=== PATIENT | male | born 1980 | race American Indian/Alaskan Native ===

== ENCOUNTER 2019-05-13 08:45 | Emergency (ER) | payer OTHER ==
[2019-05-13 08:57] VITALS: BP 218/139
--- NOTE | 2019-05-13 09:33 | Emergency Department Report ---
ED Lower Extremity HPI - General Chief Complaint: Extremity Injury, Lower Stated Complaint: W/C L FOOT PAIN Time Seen by Provider: 05/13/19 09:20 Source: patient Mode of arrival: Ambulatory Limitations: No Limitations - History of Present Illness MD Complaint: ankle injury, foot injury -: Last night Injury: Ankle: Left, Foot: Left Type of Injury: blunt Place: work Severity: moderate Worsens With: weight bearing Associated Symptoms: able to partially bear weight - Related Data Allergies Allergy/AdvReac Type Severity Reaction Status Date / Time No Known Allergies Allergy Unverified 05/13/19 08:50 ED Review of Systems ROS: Stated complaint: W/C L FOOT PAIN Other details as noted in HPI Comment: All other systems reviewed and negative Constitutional: denies: chills, fever Respiratory: denies: cough, orthopnea, shortness of breath, SOB with exertion Cardiovascular: denies: chest pain, palpitations Gastrointestinal: denies: abdominal pain, nausea, vomiting, diarrhea, constipation, hematemesis, melena, hematochezia Neurological: denies: headache, weakness ED Past Medical Hx - Past Medical History Previous Medical History?: No - Surgical History Past Surgical History?: No - Social History Smoking Status: Current Every Day Smoker Substance Use Type: None ED Physical Exam - General Limitations: No Limitations General appearance: alert, in no apparent distress - Head Head exam: Present: atraumatic, normocephalic, normal inspection - Eye Eye exam: Present: normal appearance, PERRL - Neck Neck exam: Present: normal inspection, full ROM. Absent: tenderness, meningismus, lymphadenopathy, thyromegaly - Respiratory Respiratory exam: Present: normal lung sounds bilaterally - Cardiovascular Cardiovascular Exam: Present: regular rate, normal rhythm, normal heart sounds - GI/Abdominal GI/Abdominal exam: Present: soft. Absent: tenderness - Expanded Lower Extremity Exam Left Ankle exam: Present: normal inspection, full ROM. Absent: tenderness, swelling Foot/Toe exam: Present: tenderness, swelling. Absent: abrasion, laceration, ecchymosis, deformity, crepidus Neuro vascular tendon exam: Present: no vascular compromise Gait: Positive: observed and limited by pain - Back Exam Back exam: Present: normal inspection, full ROM. Absent: CVA tenderness (R), CVA tenderness (L) - Neurological Exam Neurological exam: Present: alert, oriented X3, CN II-XII intact - Skin Skin exam: Present: warm, intact, normal color ED Course Vital Signs 05/13/19 08:54 Temperature 99 F Pulse Rate 94 H Respiratory 16 Rate Blood Pressure 218/139 [Left] O2 Sat by Pulse 100 Oximetry ED Lower Extremity MDM - Medical Decision Making Patient x-rays showed a nondisplaced first metatarsal fracture. Posterior splint applied. Patient provided crutches and follow-up with Dr. Kahn. Critical care attestation.: If time is entered above; I have spent that time in minutes in the direct care of this critically ill patient, excluding procedure time. ED Disposition Clinical Impression: Nondisplaced fracture of first metatarsal bone Disposition: - TO HOME OR SELFCARE Is pt being admited?: No Condition: Stable Instructions: Foot Fracture in Adults (ED) Referrals: SALINAS KAHN MD [Staff Physician] - 3-5 Days
--- NOTE | 2019-05-13 09:45 | XRay Report ---
Left foot, 3 views INDICATION: Pain following injury today FINDINGS: The joint space is maintained. There is a minimally distracted, nondisplaced longitudinal f racture through the first metatarsal. There is overlying soft tissue swelling. The remaining bones of the foot are intact.. No spurring or arthritic change. No bone lesion or periostitis. IMPRESSION: Nondisplaced first metatarsal fracture Signer Name: Gio Toussaint MD Signed: 05/13/2019 9:41 AM Workstation Name: [id number]
--- NOTE | 2019-05-13 09:46 | XRay Report ---
Left ankle, 3 views INDICATION: Ankle pain following injury today FINDINGS: The joint space is maintained. There is no fracture or dislocation. No spurring or arthriti c change. No bone lesion or periostitis. No significant abnormality. IMPRESSION: Negative study Signer Name: Gio Toussaint MD Signed: 05/13/2019 9:42 AM Workstation Name: [id number]
== END 2019-05-13 10:51 | disposition home or self-care (01) ==
LOC: ED 08:45
DX: S92.315A Nondisplaced fracture of first metatarsal bone, left foot, initial encounter for closed fracture (principal); F17.200 Nicotine dependence, unspecified, uncomplicated; X58.XXXA Exposure to other specified factors, initial encounter; Y93.89 Activity, other specified; Y92.89 Other specified places as the place of occurrence of the external cause; Y99.0 Civilian activity done for income or pay
CPT/HCPCS: 99283